=== PATIENT | male | born 1940 | race Caucasian/White ===

== ENCOUNTER 2021-12-14 03:11 | Emergency (ER) | payer MEDICARE ==
[~2021-12-14] VITALS: Ht 172.7 cm; Wt 109.1 kg
[2021-12-14 03:36] VITALS: BP 159/63
--- NOTE | 2021-12-14 03:43 | PHYS DOC ---
Adult General Chief Complaint Chief Complaint: OTHER COMPLAINTS HPI HPI The patient is an 81-year-old male who presents for evaluation after his caregiver noticed that his CPAP machine was not providing airflow overnight. She was concerned about his oxygen level and wanted him to be evaluated. Upon initial evaluation here in the emergency department patient is alert and oriented x4 and pleasantly and appropriately interactive and in absolutely no acute distress, with completely appropriate vital signs including an oxygen saturation of 98% on room air. He denies any shortness of breath, chest pain or any other symptoms and states he feels well right now. Review of Systems Review of Systems A 12 point review of systems was completed and was negative except for noted in HPI above. Physical Exam Physical Exam 81-year-old male appearing nontoxic and in no acute distress. Head is normocephalic and atraumatic. Neck is supple and nontender. Oropharynx is moist. Lungs are clear to auscultation at all stations. There is a normal S1 and S2 without rubs or gallops and capillary refill is appropriate, less than 2 seconds globally. Abdomen is soft, nontender and nondistended. Skin is warm and dry and without cyanosis, clubbing or edema. Psychiatrically, the patient demonstrates appropriate mood and affect and is alert. Evaluation of the extremities reveals BUEs and BLEs neurovascularly intact distally with strength out of 5, sensation intact light touch in all nerve distributions, radial, DP and PT pulses 2+ and equal bilaterally, capillary refill less than 2 seconds, hands and feet warm and well-perfused. No dependent peripheral edema distally. No calf tenderness swelling bilaterally. Homans test is negative bilaterally. EKG EKG [] Radiology/Procedures Radiology/Procedures [] Course & Med Decision Making Course & Med Decision Making Completely well-appearing 81-year-old male presenting for evaluation after ely martinez noticed that his CPAP mask was not working right. Oxygen saturation 98%. Patient asymptomatic. Recommended that patient pursue replacement [facility] just [facility] hours (this is where he gets his supplies). He agrees to do so. He understands that if he feels worse instead of better or develops other new symptoms of concern that he will need to return to the emergency department immediately for reevaluation. All questions are answered. Dragon Disclaimer Dragon Disclaimer This electronic medical record was generated, in whole or in part, using a voice recognition dictation system. Departure Departure Impression: Primary Impression: Encounter for medical screening examination Disposition: HOME / SELF CARE / HOMELESS Condition: STABLE Patient Instructions: Medical Screening Exam Additional Instructions: [facility] to [facility] just a [facility] later this morning to have your [facility]AP equipment checked and replaced if needed. Return to the emergency department right away for worsening symptoms of any kind or with any other new symptoms of concern. KATHERIN ELIZONDO MD Dec 14, 2021 03:43
== END 2021-12-14 03:48 | disposition home or self-care (01) ==
LOC: ER 03:11
DX: Z00.00 Encounter for general adult medical examination without abnormal findings (principal)
CPT/HCPCS: 99281